=== PATIENT | female | born 1955 | race African-American/Black ===

== ENCOUNTER 2019-04-06 10:34 | Emergency (ER) | payer OTHER ==
[~2019-04-06] VITALS: Ht 157.5 cm; Wt 54.0 kg
[~2019-04-06 10:34] MED LIST: ATOR40TA59 PO; PHEN100C PO; [UNRECOGNIZED DRUG - OTHER] PO
--- NOTE | 2019-04-06 11:01 | PHYS DOC ---
Past Medical History Past Medical History: Cancer, High Cholesterol, Other Additional Past Medical Histor: neuropathy, breast cancer Past Surgical History: Other Additional Past Surgical Histo: left mastectomy Alcohol Use: Heavy Drug Use: None Adult General Chief Complaint Chief Complaint: LOWER EXTREMITY SWELLING HPI HPI Patient is a 63 year old [female] who presents with [bilateral ankle swelling for the past week. Patient reports over the last week, she has noticed some increased swelling.. States she has not had this been passed. Does report she has had some intermittent swelling on and off since 2004 him when she had radiation treatment for breast cancer. States she has not followed up with her primary care over this. States she has not tried doing anything other than elevating legs on and off for the past 2 days. Denies fever. Denies shortness of breath. Denies orthopnea. Denies exertional dyspnea.] Review of Systems Review of Systems Constitutional: Denies fever or chills [] Eyes: Denies change in visual acuity, redness, or eye pain [] HENT: Denies nasal congestion or sore throat [] Respiratory: Denies cough or shortness of breath [] Cardiovascular: No additional information not addressed in HPI [] GI: Denies abdominal pain, nausea, vomiting, bloody stools or diarrhea [] : Denies dysuria or hematuria [] Musculoskeletal: Denies back pain or joint pain does report some discomfort to lower legs, ankles. Does report swelling to bilateral ankles [] Integument: Denies rash or skin lesions [] Neurologic: Denies headache, focal weakness or sensory changes [] Endocrine: Denies polyuria or polydipsia [] All other systems were reviewed and found to be within normal limits, except as documented in this note. Allergies Allergies Allergies Coded Allergies Type Severity Reaction Last Updated Verified codeine Adverse Reaction Mild 04/06/19 No Physical Exam Physical Exam Constitutional: Well developed, well nourished, no acute distress, non-toxic appearance. [] HENT: Normocephalic, atraumatic, bilateral external ears normal, oropharynx mo ist, no oral exudates, nose normal. [] Eyes: PERRLA, EOMI, conjunctiva normal, no discharge. [] Neck: Normal range of motion, no tenderness, supple, no stridor. [] Cardiovascular:Heart rate regular rhythm, no murmur [] Lungs & Thorax: Bilateral breath sounds clear to auscultation [] Abdomen: Bowel sounds normal, soft, no tenderness, no masses, no pulsatile masses. [] Skin: Warm, dry, no erythema, no rash. [] Back: No tenderness, no CVA tenderness. [] Extremities: No tenderness, no cyanosis, no clubbing, ROM intact,edema noted to the ankles. Strong pulses palpated on foot. Sensation intact on feet. Negative Homans sign bilaterally. No cords palpated on bilateral legs. No lesions noted to lower extremities. Edema nonpitting.. [] Neurologic: Alert and oriented X 3, normal motor function, normal sensory function, no focal deficits noted. [] Psychologic: Affect normal, judgement normal, mood normal. [] Current Patient Data Vital Signs Vital Signs Date Time Temp Pulse Resp B/P (MAP) Pulse Ox O2 Delivery O2 Flow Rate FiO2 04/06/19 13:30 80 17 171/81 (111) 100 Room Air 04/06/19 10:40 98.3 98.3 Lab Values Laboratory Tests Test 04/06/19 12:00 04/06/19 13:30 White Blood Count 5.9 x10^3/uL (4.0-11.0) Red Blood Count 3.38 x10^6/uL (3.50-5.40) L Hemoglobin 11.6 g/dL (12.0-15.5) L Hematocrit 34.9 % (36.0-47.0) L Mean Corpuscular Volume 103 fL (79-100) H Mean Corpuscular Hemoglobin 34 pg (25-35) Mean Corpuscular Hemoglobin Concent 33 g/dL (31-37) Red Cell Distribution Width 14.0 % (11.5-14.5) Platelet Count 164 x10^3/uL (140-400) Neutrophils (%) (Auto) 72 % (31-73) Lymphocytes (%) (Auto) 19 % (24-48) L Monocytes (%) (Auto) 8 % (0-9) Eosinophils (%) (Auto) 1 % (0-3) Basophils (%) (Auto) 1 % (0-3) Neutrophils # (Auto) 4.2 x10^3/uL (1.8-7.7) Lymphocytes # (Auto) 1.1 x10^3/uL (1.0-4.8) Monocytes # (Auto) 0.5 x10^3/uL (0.0-1.1) Eosinophils # (Auto) 0.1 x10^3/uL (0.0-0.7) Basophils # (Auto) 0.0 x10^3/uL (0.0-0.2) Sodium Level 140 mmol/L (136-145) Potassium Level 3.7 mmol/L (3.5-5.1) Chloride Level 104 mmol/L (98-107) Carbon Dioxide Level 25 mmol/L (21-32) Anion Gap 11 (6-14) Blood Urea Nitrogen 7 mg/dL (7-20) Creatinine 0.4 mg/dL (0.6-1.0) L Estimated GFR (Cockcroft-Gault) 195.1 BUN/Creatinine Ratio 18 (6-20) Glucose Level 88 mg/dL (70-99) Calcium Level 9.1 mg/dL (8.5-10.1) Magnesium Level 1.7 mg/dL (1.8-2.4) L Total Bilirubin 0.3 mg/dL (0.2-1.0) Aspartate Amino Transferase (AST) 42 U/L (15-37) H Alanine Aminotransferase (ALT) 16 U/L (14-59) Alkaline Phosphatase 155 U/L (46-116) H Troponin I Quantitative < 0.017 ng/mL (0.000-0.055) VQ-Gwu-H-Type Natriuretic Peptide 361 pg/mL (0-124) H Total Protein 7.3 g/dL (6.4-8.2) Albumin 3.0 g/dL (3.4-5.0) L Albumin/Globulin Ratio 0.7 (1.0-1.7) L Urine Collection Type Unknown Urine Color Yellow Urine Clarity Cloudy Urine pH 7.5 Urine Specific [place] 1.015 Urine Protein Negative mg/dL (NEG-TRACE) Urine Glucose (UA) Negative mg/dL (NEG) Urine Ketones (Stick) Negative mg/dL (NEG) Urine Blood Negative (NEG) Urine Nitrite Negative (NEG) Urine Bilirubin Negative (NEG) Urine Urobilinogen Dipstick 0.2 mg/dL (0.2 mg/dL) Urine Leukocyte Esterase Moderate (NEG) Urine RBC 0 /HPF (0-2) Urine WBC Tntc /HPF (0-4) Urine Squamous Epithelial Cells Many /LPF Urine Bacteria Moderate /HPF (0-FEW) Laboratory Tests 04/06/19 12:00 Laboratory Tests 04/06/19 12:00 EKG EKG [] Radiology/Procedures Radiology/Procedures CHEST AP ONLY History: Edema Comparison: None. Findings: No consolidation or pleural effusion. Normal heart size. No pneumothorax. Postop changes left axilla. Impression: 1. No acute cardiopulmonary process. Electronically signed by: Casie Lainez DO (04/06/2019 11:43 AM) [facility] DICTATED and SIGNED BY: CASIE LAINEZ DO[] Course & Med Decision Making Course & Med Decision Making Pertinent Labs and Imaging studies reviewed. (See chart for details) [Discussed findings with patient, without acute changes. Recommend patient foll ow up with PCP next week. Will provide short course of diuretics. Dragon Disclaimer Dragon Disclaimer This electronic medical record was generated, in whole or in part, using a voice recognition dictation system. Departure Departure Impression: Primary Impression: Pedal edema Disposition: 01 HOME, SELF-CARE Condition: STABLE Referrals: WERNER MOORE MD (PCP) Patient Instructions: Edema Additional Instructions: Your blood tests and chest x ray today looked good. You do seem to have some increased swelling in your ankles. We can give you a medication to help remove some of the swelling from your ankles. Follow up with Dr Moore in the next few days Scripts Hydrochlorothiazide (HYDROCHLOROTHIAZIDE TABLET) 12.5 Mg Tablet 12.5 MG PO DAILY for DIURETIC for 5 Days, #5 TAB 0 Refills Prov: HIRAM LATHAM APRN 04/06/19 HIRAM LATHAM APRN Apr 06, 2019 11:00
--- NOTE | 2019-04-06 11:46 | RAD ---
CHEST AP ONLY History: Edema Comparison: None. Findings: No consolidation or pleural effusion. Normal heart size. No pneumothorax. Postop changes left axilla. Impression: 1. No acute cardiopulmonary process. Electronically signed by: Davion Lainez DO (04/06/2019 11:43 AM) [facility]
[2019-04-06 12:17] LABS: BASO % 1 % (0-3); EOS # 0.1 x10^3/uL (0.0-0.7); EOS % 1 % (0-3); HEMATOCRIT 34.9 % (36.0-47.0); HEMOGLOBIN 11.6 g/dL (12.0-15.5); LYMPH # 1.1 x10^3/uL (1.0-4.8); LYMPH % 19 % (24-48); MEAN CORPUSCULAR HEMOGLOBIN 34 pg (25-35); MEAN CORPUSCULAR HGB CONC 33 g/dL (31-37); MEAN CORPUSCULAR VOLUME 103 fL (79-100); MONO # 0.5 x10^3/uL (0.0-1.1); MONO % 8 % (0-9); NEUT # 4.2 x10^3/uL (1.8-7.7); NEUT % 72 % (31-73); PLATELET COUNT 164 x10^3/uL (140-400); RED BLOOD COUNT 3.38 x10^6/uL (3.50-5.40); WHITE BLOOD COUNT 5.9 x10^3/uL (4.0-11.0)
[2019-04-06 12:34] LABS: CALCIUM 9.1 mg/dL (8.5-10.1); CREATININE 0.4 mg/dL (0.6-1.0); GFR 195.1; POTASSIUM 3.7 mmol/L (3.5-5.1)
[2019-04-06 12:39] LABS: ALBUMIN/GLOBULIN RATIO 0.7 (1.0-1.7); MAGNESIUM 1.7 mg/dL (1.8-2.4); TOTAL BILIRUBIN 0.3 mg/dL (0.2-1.0); TOTAL PROTEIN 7.3 g/dL (6.4-8.2)
[2019-04-06 13:35] LABS: BILIRUBIN,URINE NEGATIVE (NEG); CLARITY,URINE CLOUDY; COLOR,URINE YELLOW; NITRITE,URINE NEGATIVE (NEG); PH,URINE 7.5; PROTEIN,URINE NEGATIVE (NEG-TRACE); UROBILINOGEN,URINE 0.2 mg/dL (0.2 mg/dL)
[2019-04-06 13:58] LABS: BACTERIA,URINE MODERATE /HPF (0-FEW); RBC,URINE 0 /HPF (0-2); SQUAMOUS EPITHELIAL CELL,UR MANY /LPF; WBC,URINE TNTC /HPF (0-4)
[2019-04-06 14:19] VITALS: BP 132/73
[2019-04-06] MEDS ORDERED: HYDR12.58 PO (14:33)
== END 2019-04-06 14:42 | disposition home or self-care (01) ==
LOC: ER 10:34
DX: R60.0 Localized edema (principal); E78.00 Pure hypercholesterolemia, unspecified; F10.20 Alcohol dependence, uncomplicated; Y90.9 Presence of alcohol in blood, level not specified; Z88.5 Allergy status to narcotic agent
CPT/HCPCS: 36415; 71045; 80053; 81001; 83735; 83880; 84484; 85025; 87086; 99285-25